=== PATIENT | female | born 1985 | race Caucasian/White ===

== ENCOUNTER 2018-02-11 16:01 | Inpatient (IN) | payer OTHER ==
[~2018-02-11] VITALS: Ht 149.9 cm
[2018-02-11 16:56] LABS: HEMATOCRIT 37.4 % (36.0-46.0); HEMOGLOBIN 12.3 G/DL (11.9-15.5); MCH 29.3 PG (29.0-34.0); MCHC 32.9 G/DL (30.0-36.0); PLATELET COUNT 307 K/uL (156-360); RBC DIS.WIDTH-CV 14.4 % (11.8-14.6); WHITE BLOOD COUNT 9.7 K/uL (4.1-10.2)
[2018-02-11 17:05] LABS: CHLORIDE 105 mEq/L (99-109); POTASSIUM 4.3 mEq/L (3.7-5.4); SODIUM 140 mEq/L (136-147)
[2018-02-11 17:07] LABS: GLUCOSE 107 mg/dL (70-99)
[2018-02-11 17:10] LABS: SERUM ETHYL ALCOHOL < 10 mg/dL
[2018-02-11 17:11] LABS: CREATININE 0.7 mg/dL (0.6-1.3); GFR ESTIMATE (CALCULATED) > 59 mL/min/
[2018-02-11 17:12] LABS: UREA NITROGEN (BUN) 6 mg/dL (9-23)
[2018-02-11 17:19] LABS: QUANTITATIVE HCG < 4.0 MIU/ML
[2018-02-11 17:30] LABS: AMPHETAMINE NEGATIVE (500 ng/mL); BARBITURATES NEGATIVE (200 ng/mL); BENZODIAZEPINES NEGATIVE (150 ng/mL); BUPRENORPHINE NEGATIVE (10 ng/mL); COCAINE NEGATIVE (150 ng/mL); METHADONE NEGATIVE (200 ng/mL); METHAMPHETAMINE NEGATIVE (500 ng/mL); OPIATES (MORPHINE) NEGATIVE (100 ng/mL); OXYCODONE NEGATIVE (100 ng/mL); PHENCYCLIDINE NEGATIVE (25 ng/mL); PROPOXYPHENE NEGATIVE (300 ng/mL); THC CANNABINOIDS NEGATIVE (50 ng/mL); TRICYCLIC ANTIDEPRESSANTS NEGATIVE (300 ng/mL)
[2018-02-11 17:57] LABS: THYROTROPIN (TSH) 0.24 MIU/L (0.4-5.5)
[2018-02-11] MEDS ORDERED: PAXIL10 MG PO (18:44)
[2018-02-11] MEDS ORDERED: ADVIL200 MG PO (18:44)
[2018-02-11] MEDS ORDERED: TYLENOL EXTRA500 MG PO (18:44)
[2018-02-11 20:35] VITALS: BP 125/81
[2018-02-12 07:59] VITALS: BP 133/73
[2018-02-12 16:46] VITALS: BP 118/75
[2018-02-13 08:18] VITALS: BP 127/80
[2018-02-13] MEDS ORDERED: PAROXETINE HCL20 MG PO (10:23)
== END 2018-02-13 12:28 | disposition home or self-care (01) | DRG 885 ==
LOC: EME 16:01 → EDOF 18:23 → 1WEST 18:23 → ENRESERV 20:28 → 1WEST 20:29
PROVIDERS: Emergency Medicine
DX: F33.1 Major depressive disorder, recurrent, moderate (principal); R45.851 Suicidal ideations; F10.20 Alcohol dependence, uncomplicated
CPT/HCPCS: 80048; 84443; 84481; 84702; 85027; 90839; 99281; 99285; G0480